=== PATIENT | female | born 1995 | race Two or more races ===

== ENCOUNTER 2024-05-10 12:35 | Emergency (ER) | payer MEDICAID, SELFPAY ==
[2024-05-10 12:44] VITALS: BP 107/70; PULSE 74; RESP 18; TEMP 36.4; O2SAT 99; BMI 27.5
--- NOTE | 2024-05-10 12:57 | ED_ITS ---
HPI - General Adult General Chief complaint: Unspecified Complaint, Adult Stated complaint: Confirm Time Seen by Provider: 05/10/24 12:39 History of Present Illness HPI narrative: took a home preg test at home 2 weeks ago. has not scheduled an OB appt. would like an OB check today. also c/o cough 28-year-old woman presenting to the emergency department to initiate family to initiate obstetrical cares. She notes a history of PCOS and LMP was 02/27/24 though admittedly has rather irregular menses. Two days ago did have a little spotting. She has also had a low back ache. Continues with nausea and breast tenderness. She is not having any abdominal pain. No dysuria or urgency. Last week had some cough and cold symptoms which seem to be much less; improved. No fever. Positive home test at home 2 weeks ago. Here with her partner and other child and would like to know that things are okay and initiate cares. Are recent immigrants from [facility] and asylum case I believe is pending. No health insurance at this time. Wants to make sure she is on the right medications mentioning vitamins. Has been struggling some with heartburn as well. Related Data Home Medications ?Medication ?Instructions ?Recorded ?Confirmed No Known Home Medications 05/10/24 05/10/24 Allergies Allergy/AdvReac Type Severity Reaction Status Date / Time No Known Drug Allergies Allergy Verified 05/10/24 12:47 Review of Systems Status of ROS: Reports: 6 or more systems reviewed and unremarkable except as noted in History and below [facility] Social History Smoking Status: Never smoker Do you use any of these nicotine containing products: None Second hand tobacco smoke exposure: No How often do you have a drink containing alcohol: never AUDIT-C Alcohol total score: 0 Non-prescribed substance use: denies use service: No Exam Narrative: Exam Narrative: Very pleasant. Carefully groomed. Breathing easily. Skin is warm and dry. Lungs are clear. Sounds a little congested in the nasopharynx. Heart with regular rate and rhythm. Abdomen is soft and without notable discomfort to palpation. No flank pain. Extremities are well perfused without edema. Genit ourinary exam was not done. Const: Vital Signs, click to edit/add: Vital Signs - 24 hr 05/10/24 12:44 Temperature 97.5 F L Pulse Rate [Right Pulse Oximeter] 74 Respiratory Rate 18 Blood Pressure [Ri ght Upper Arm] 107/70 Pulse Oximetry 99 Oxygen Delivery Me thod Room Air Documenting provider has reviewed patient's vital signs: yes Course Vital Signs Vital signs: Initial Vital Signs Temperature 97.5 F L 05/10/24 12:44 Temperature Source Temporal Artery Scan 05/10/24 12:44 Pulse Rate 74 05/10/24 12:44 Respiratory Rate 18 05/10/24 12:44 Blood Pressure 107/70 05/10/24 12:44 Blood Pressure Mean 82 05/10/24 12:44 Blood Pressure Position Sitting 05/10/24 12:44 Pulse Oximetry 99 05/10/24 12:44 Oxygen Delivery Method Room Air 05/10/24 12:44 Vital Signs Temperature 97.5 F L 05/10/24 12:44 Pulse Rate 74 05/10/24 12:44 Respiratory Rate 18 05/10/24 12:44 Blood Pressure 107/70 05/10/24 12:44 Pulse Oximetry 99 05/10/24 12:44 Oxygen Delivery Method Room Air 05/10/24 12:44 Temperature 97.5 F L 05/10/24 12:44 Pulse Rate 74 05/10/24 12:44 Respiratory Rate 18 05/10/24 12:44 Blood Pressure 107/70 05/10/24 12:44 Pulse Oximetry 99 05/10/24 12:44 Oxygen Delivery Method Room Air 05/10/24 12:44 Medical Decision Making MDM Narrative Medical decision making narrative: They were concerned about cost of care at this point as well as doing things the right way given there immigration/asylum case. Did attempt to find historical interpreter services to help with appropriate paperwork. Unavailable at this time. Differential to this spotting as described would be post coital or subchorionic bleed, miscarriage, other infection. She does not have symptoms of other vaginal infection. Still has symptoms that I would consider to be consistent with continued namely nausea and breast tenderness. No significant abdominal pain or cramping or symptoms otherwise that I would associate with miscarriage. Could be ectopic . I think generally well and could follow up outpatient. I did return to do a bedside quick look ultrasound. Can verify intrauterine of approximately 8-10 weeks not inconsistent with her reported LMP. Heart rate looks to be good as well. Also looks to have a small subchorionic hemorrhage. We did discuss collecting a urinalysis. They would like to do this and other lab studies in follow-up. I do not think that is unreasonable. Did reach out to OB as well for follow-up in clinic. Referred initially to [facility] to start paperwork/documentation for medical/obstetrical follow- up. See patient discharge plan for further discussion Discharge Plan Discharge Clinical Impression: at early stage, Subchorionic bleed Patient Disposition: Home w/ Parent or Adult Condition: Stable Additional Instructions: Stay well-hydrated. Avoid high level of exertion over the next month. Staying active is good. I am prescribing some medication for you including your vitamins, famotidine for heartburn and ondansetron for nausea. [facility] are [facility]. I think it is good to started [facility] clinic as they can help you fell out proper paperwork. Return for marked increase in bleeding and/or abdominal cramping, bleeding to the degree where you might be bleeding through 1 heavy pad an hour for 2 consecutive hours. Mant?ngase fausto hidratada. Evite realizar un esfuerzo excesivo jun el pr?ximo mes. Mantenerse activa es rodney. Le estoy recetando algunos medicamentos, incluidas mary ann vitaminas prenatales, famotidina para la acidez estomacal y ondansetr?n para las n?useas. Puede regresar a la cl[facility] para recibir atenci?n obst?trica. Creo que es rodney comenzar la cl?[facility]tt [facility], ya que pueden ayudarla a completar el papeleo adecuado. Vuelva por un aumento marcado en el sangrado y/o calambres abdominales, sangrado hasta el punto en que podr?a sangrar a devante?s de jordan toalla higi?rhett pesada por hora jun 2 horas consecutivas. Prescriptions: No Action No Known Home Medications Follow Up/Referrals: Provider,Not a Local [Primary Care Provider] - Stand Alone Forms: [facility] Info Instructions
== END 2024-05-10 14:57 | disposition home or self-care (01) ==
PROVIDERS: Emergency Provider Family Medicine
DX: O20.9 Hemorrhage in early pregnancy, unspecified (principal)
CPT/HCPCS: 81001; 99282; 99283

== ENCOUNTER 2024-07-11 07:07 | Outpatient (CLI) | payer MEDICAID, SELFPAY ==
--- NOTE | 2024-07-11 07:15 | CRLHL7_ITS ---
For Patients: As a result of the Century Cures Act, medical imaging exams and procedure reports are released immediately into your electronic medical record. You may view this report before your referring provider. If you have questions, please contact your health care provider. INDICATION: Dating and viability COMPARISON: None. TECHNIQUE: Real-time gaytan-scale imaging of the pelvis was performed. FINDINGS: heart rate 137 beats per minute. Cervix is closed and measures 4.7 cm. BPD 3.6 cm, 17 weeks 1 day. HC 14.0 cm, 17 weeks 2 days. AC 12.2 cm, 17 weeks 6 days. FL 2.4 cm, 17 weeks 2 days. Sonographic age 17 weeks 3 days and a sonographic due date of 12/16/2024. IMPRESSION: Gestational age calculated at 17 weeks 3 days with a sonographic due date of 12/16/2024. Dictated by Sohan Booker MD @ 07/12/2024 9:35:48 AM (Electronically Signed)
== END 2024-07-11 07:08 | disposition home or self-care (01) ==
PROVIDERS: Visit Provider Physician Assistant
DX: Z34.92 Encounter for supervision of normal pregnancy, unspecified, second trimester (principal); Z3A.17 17 weeks gestation of pregnancy
CPT/HCPCS: 76815; T1013

== ENCOUNTER 2024-07-11 08:14 | Outpatient (CLI) | payer MEDICAID, SELFPAY ==
[2024-07-11 13:28] LABS: Chlamydia DNA Amplified* NOT DETECTED (No Detected); GC DNA Amplified* NOT DETECTED (No Detected)
== END 2024-07-11 08:15 | disposition home or self-care (01) ==
PROVIDERS: Visit Provider Physician Assistant
DX: Z34.92 Encounter for supervision of normal pregnancy, unspecified, second trimester (principal); Z3A.17 17 weeks gestation of pregnancy
CPT/HCPCS: 76815; 86592; 86703; 86704; 86706; 86762; 86787; 86803; 86850; 86900; 86901; 87086; 87340; 87491; 87591

== ENCOUNTER 2024-08-04 07:03 | Outpatient (CLI) | payer MEDICAID, SELFPAY ==
--- NOTE | 2024-08-04 07:15 | CRLHL7_ITS ---
For Patients: As a result of the Century Cures Act, medical imaging exams and procedure reports are released immediately into your electronic medical record. You may view this report before your referring provider. If you have questions, please contact your health care provider. INDICATION: Evaluate anatomy. COMPARISON: 07/11/2024 TECHNIQUE: Real time gaytan scale imaging of the fetus was performed as well as color Doppler analysis of the umbilical vessels. FINDINGS: Sonographic imaging demonstrates a single living intrauterine gestation. Fetus demonstrates a regular cardiac rate of 139 beats per minute. Fetus has a breech position. The placenta lies anteriorly without evidence of placenta previa. Placental edge is 7.1 cm from the internal cervical os. Amniotic fluid volume appears normal. Single deepest vertical pocket: 4.9 cm. The cervix is closed and measures 3.9 cm in length. The composite ultrasound gestational age is calculated at 20 weeks 5 days with an estimated sonographic due date of 12/17/2024. The estimated weight is 400 grams which lies at the 59th %. The following biometric measurements were obtained: Biparietal diameter: 4.5 cm/19 weeks 4 days 9th% Head circumference: 17.6 cm/20 weeks 1 day 13th% Abdominal circumference: 17.1 cm/22 weeks 0 days 81st% Femur length: 3.3 cm/20 weeks 2 days 25th% The HC/AC ratio measures: 1.03 range (1.06-1.25) On anatomic survey, there is a normal appearance of the cerebral ventricles, cavum septi pellucidi, cisterna magna and cerebellum. The nose, lips, and facial profile appear normal. The cervical, thoracic and lumbar spine are not well visualized. There is a normal four-chamber heart view and the left and right ventricular outflow tracts appear normal. The diaphragm and stomach appear normal. Normal bladder. Incomplete visualization of the kidneys. There is a normal three-vessel cord and cord insertion site. The four extremities appear normal. IMPRESSION: Concordance of clinical and sonographic dating. Incomplete visualization of the spine and kidneys due to position. Remainder of the anatomic survey normal. Short-term follow-up recommended. Dictated by Sohan Booker MD @ 08/04/2024 10:22:55 AM (Electronically Signed)
== END 2024-08-04 07:04 | disposition home or self-care (01) ==
LOC: US 07:04
PROVIDERS: Visit Provider Physician Assistant
DX: Z34.92 Encounter for supervision of normal pregnancy, unspecified, second trimester (principal); Z3A.20 20 weeks gestation of pregnancy
CPT/HCPCS: 76805; T1013

== ENCOUNTER 2024-09-01 07:10 | Outpatient (CLI) | payer BC, SELFPAY ==
--- NOTE | 2024-09-01 07:15 | CRLHL7_ITS ---
For Patients: As a result of the Century Cures Act, medical imaging exams and procedure reports are released immediately into your electronic medical record. You may view this report before your referring provider. If you have questions, please contact your health care provider. INDICATION: Follow up suboptimal views of spine and kidneys COMPARISON: 08/04/2024 TECHNIQUE: Real-time gaytan-scale imaging of the pelvis was performed. FINDINGS/IMPRESSION: heart rate 142 beats per minute. Anterior placenta. position is breech. Normal spine, four-chamber heart, LVOT and RVOT. Normal kidneys. Dictated by Sohan Booker MD @ 09/02/2024 6:06:00 PM (Electronically Signed)
== END 2024-09-01 07:11 | disposition home or self-care (01) ==
PROVIDERS: Visit Provider Obstetrics & Gynecology
DX: O35.EXX0 Maternal care for other (suspected) fetal abnormality and damage, fetal genitourinary anomalies, not applicable or unspecified (principal); O35.FXX0 Maternal care for other (suspected) fetal abnormality and damage, fetal musculoskeletal anomalies of trunk, not applicable or unspecified
CPT/HCPCS: 76816; T1013

== ENCOUNTER 2024-09-25 11:09 | Outpatient (CLI) | payer BC, SELFPAY | END 2024-09-25 11:10 | disposition home or self-care (01) | LOC: NFLDREF 11:09 | PROVIDERS: PCP Advanced Practice Midwife; Visit Provider Advanced Practice Midwife | DX: O26.893 Other specified pregnancy related conditions, third trimester (principal); Z67.41 Type O blood, Rh negative; O99.810 Abnormal glucose complicating pregnancy; Z11.3 Encounter for screening for infections with a predominantly sexual mode of transmission; Z3A.28 28 weeks gestation of pregnancy; Z60.3 Acculturation difficulty; Z71.0 Person encountering health services to consult on behalf of another person | CPT/HCPCS: 86592; 86850; T1013; J2791 ==

== ENCOUNTER 2024-10-05 08:17 | Outpatient (CLI) | payer BC, SELFPAY | END 2024-10-05 08:18 | disposition home or self-care (01) | LOC: NFLDREF 10-13 04:27 | PROVIDERS: Visit Provider Obstetrics & Gynecology | DX: O99.810 Abnormal glucose complicating pregnancy (principal); Z36.89 Encounter for other specified antenatal screening; Z3A.29 29 weeks gestation of pregnancy | CPT/HCPCS: 82951; 82952 ==

== ENCOUNTER 2024-11-06 08:58 | Outpatient (CLI) | payer BC, SELFPAY | END 2024-11-06 08:59 | disposition home or self-care (01) | LOC: NFLDREF 11-10 02:38 | PROVIDERS: Visit Provider Obstetrics & Gynecology | DX: Z34.93 Encounter for supervision of normal pregnancy, unspecified, third trimester (principal); Z3A.34 34 weeks gestation of pregnancy | CPT/HCPCS: 82728 ==

== ENCOUNTER 2024-11-14 09:34 | Outpatient (RCR) | payer BC, SELFPAY ==
--- NOTE | 2024-11-08 13:58 | ONC.NURNOTE ---
Diagnosis: iron deficiency anemia in .
--- NOTE | 2024-11-08 14:39 | URNOTE ---
Prior auth is not required for Iron Dextron (J1750). Ref #[id number]
[2024-11-14 09:50] VITALS: BP 108/74; PULSE 107; RESP 16; TEMP 36.1; O2SAT 97
[2024-11-14] MEDS: IRON DEXTRAN COMPLEX 25 MG in 0.9 % SODIUM CHLORIDE 100 ml 100 ML 402 MG IVPB (10:34)
[2024-11-14 10:53] VITALS: BP 106/70; PULSE 89; RESP 16; TEMP 36.6; O2SAT 98
[2024-11-14] MEDS: IRON DEXTRAN COMPLEX 975 MG in 0.9 % SODIUM CHLORIDE 250 ml 250 ML 270 MG IVPB (11:42)
[2024-11-14] MEDS: SODIUM CHLORIDE 0.9 % (FLUSH) 10 ML SYRINGE IVF (11:43)
[2024-11-14 12:54] VITALS: BP 114/72; PULSE 79; RESP 16; O2SAT 98
[2024-11-14 13:21] VITALS: BP 107/69; PULSE 82; RESP 16; TEMP 36.9; O2SAT 97
== END 2025-05-13 23:59 | disposition home or self-care (01) ==
LOC: CCIC 09:34
PROVIDERS: Visit Provider Clinical Nurse Specialist
DX: O99.013 Anemia complicating pregnancy, third trimester (principal); D50.9 Iron deficiency anemia, unspecified
CPT/HCPCS: 96365; T1013; J1750; J7050

== ENCOUNTER 2024-11-20 09:28 | Outpatient (CLI) | payer BC, SELFPAY ==
[2024-11-21 13:27] LABS: Strep B DNA Probe Negative (Negative)
[2024-11-21 13:49] LABS: Strep B Susceptibility Needed? No
== END 2024-11-20 09:29 | disposition home or self-care (01) ==
LOC: NFLDREF 09:28
PROVIDERS: Visit Provider Midwife
DX: Z34.83 Encounter for supervision of other normal pregnancy, third trimester (principal)
CPT/HCPCS: 87081; 87653

== ENCOUNTER 2024-12-02 16:21 | Outpatient (CLI) | payer BC, SELFPAY ==
[2024-12-02 16:52] VITALS: BP 117/67; PULSE 85
--- NOTE | 2024-12-02 17:29 | PM.OBLDTN ---
OB - Triage/Final Diagnosis Visit Information Narrative: The patient is a 29 year old 2 para 1 at 38 weeks gestation by first-trimester ultrasound, who presents with contractions about every 30 minutes. is complicated by malpresentation (transverse with head to maternal left at last visit), Rh-negative and PCOS history. Had been planning to have ECV at the end of this week, but ultimately canceled as her preference would be to have a . She was given very strict return precautions over the weekend for any signs or symptoms of labor in the setting of malpresentation. 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 Patient notes onset of contractions today, occurring about every 30 minutes. She would rate her pain a 4/10 in severity. Denies any vaginal bleeding or leaking of fluid. Endorses active movement. She notes she would not typically present for rule out labor with the symptoms, but was concerned given recent malpresentation. She is otherwise in her normal state of health. Evaluation Vital signs: Vital Signs - 24 hr 12/02/24 16:52 Pulse Rate 85 Blood Pressure 117/67 Comments: General: Alert and oriented, in no acute distress. She does not grimace or posture in pain at all with fractions on tocometer. Psych: Appropriate mood and affect Abdomen: Gravid. Transabdominal ultrasound confirmed cephalic presentation. Patient is thrilled with spontaneous conversion to cephalic presentation. Cervix: Closed, station is -4. NST: Reactive. Baseline of 130 beats per minute, moderate variability and several qualifying 15 x 15 accelerations noted. No decelerations. [place]: Uterine irritability with irregular contractions. Patient denies feeling any contractions during her time in triage. After confirming cephalic presentation, patient is very relieved. We reviewed that she does appear to have some very mild contractions more frequently than she is feeling. Options include continued observation with a repeat cervical exam in 1-2 hours versus dismissal to home with close monitoring for signs/symptoms of labor progression. Patient is comfortable discharge at this time, now that she knows her baby is cephalic. We discussed strict return precautions for regular/painful contractions (approximately every 5 minutes), any vaginal bleeding/leaking of fluid or decreased movement. All questions answered. Return precautions reinforced.
--- NOTE | 2024-12-02 19:36 | PC.OBNST ---
NST Note NST Note Start: 12/02/24 16:25 Freq: ONCE Status: Active Protocol: Document 12/02/24 17:45 ABP (Rec: 12/02/24 19:35 ABP [id number]) NST Note 2 Para (# of births) 1 EDC 12/16/24 Gestational Age In Weeks & Days 38 Weeks & 0 Days Patient Presented with Complaint(s) of Contractions/cramping Other Complaints Baby possibly breech. Reactive Yes REJI De La Cruz RN Date 12/02/24 Reactive Yes REJI Waite RN Date 12/02/24 OB NST charge Yes Complete NST Note via Write Note Yes The provider's electronic signature indicates the NST is reactive/appropriate for gestational age. *Note to provider: If an addendum is required, open the patient's chart and click on the note under the Nurse/Allied Health tab.
== END 2024-12-02 17:30 | disposition home or self-care (01) ==
LOC: OB OUT 16:22 → OB 16:23
PROVIDERS: Visit Provider Obstetrics & Gynecology
DX: O47.1 False labor at or after 37 completed weeks of gestation (principal); Z3A.38 38 weeks gestation of pregnancy
CPT/HCPCS: 59025; 76815; G0463

== ENCOUNTER 2024-12-14 15:55 | Inpatient (IN) | payer BC, SELFPAY ==
[2024-12-14 16:04] VITALS: BP 132/84; PULSE 91
[2024-12-14 16:14] VITALS: BMI 33.4
[2024-12-14 16:15] VITALS: PULSE 88; TEMP 36.9; O2SAT 98
--- NOTE | 2024-12-14 16:19 | P.LDBA_ITS ---
Subjective History of Present Illness Date Seen: 12/14/24 Narrative: Patient is being admitted to Labor and Delivery for elective IOL. She is a 29 year old at 39 5/7 weeks gestation. Her full history and physical was dictated by Dr. COFFEY on 11/28/24. Please see this for details. No new concerns or complaints today. Specific Issues/Plans Partner: Haroon Girl: Charo # late to care due to lack of insurance coverage First visit at 17 weeks 3 days. Dated by second-trimester ultrasound # malpresentation at term ECV on 11/29/24: Spontaneous conversion Cephalic at December 11 visit. # Rh-negative RhoGAM: given 09/25 # varicella nonimmune Vaccinate # Anemia * Hgb 10.4, ferritin 5.6 (11/06/24) * refer for IV iron infusion therapy # Nepali-speaking Imaging: - [facility] 08/04: Normal visualized anatomy, suboptimal views of kidneys. EFW 400g at 59%ile, MVP 7.1cm, Cx long/closed. Anterior placenta, no previa. - 09/06 repeat due to suboptimal visualization: Normal spine, four-chamber heart, LVOT and RVOT. Normal kidneys. Vaccinations: COVID: Declined Flu: Declined Tdap: 10/09/24 RSV: 10/23/24 32 week mental health: 10/23/24 Last pap: Patient reports [facility] in 2022, records not available, she will perform Pap H&P: Dr. Coffey 11/28/2024 OB - Problem Based A/P Additional Plan (1) : Status: Acute Plan 1. Elective IOL, cervix still unfavorable. First delivery she responded very well to vaginal Cytotec. Will proceed with vaginal Cytotec per protocol. 2. GBS negative, no need for antibiotic prophylaxis. 3. Patient plans to get epidural when needed. 4. RH negative, collect cord blood after delivery. OB Exam Physical Exam Vital signs: Pulse BP Pulse Ox 91 132/84 98 12/14/24 16:04 12/14/24 16:04 12/14/24 16:15 Narrative: Bedside US today again confirms vertex presentation. Detailed Labor and Delivery Exam Patient Gravid: Yes Dilation (cm): 0 Effacement (%): 25 Cervix position: mid Consistency: soft Fetus (Single) Amniotic Membrane Status: intact Heart Rate Baseline: 130 Monitor Accelerations: Present Monitor Decelerations: None Usp Variability: Moderate (6-25)
[2024-12-14] MEDS: miSOPROStoL 25 MCG/0.25 TABLET VAGINAL ×2 (17:04→21:09)
[2024-12-14 19:24] VITALS: BP 122/78; PULSE 94; RESP 18; TEMP 36.7
[2024-12-14] MEDS: LACTATED RINGERS 500 ML 500 ML IV (19:28)
[2024-12-14 19:32] LABS: Basophils Absolute Auto 0.02 K/uL (0.00-0.30); Basophils Percent Auto 0.2 % (0.0-3.0); Hematocrit 37.2 % (33.0-51.0); Hemoglobin* 12.5 gm/dL (12.0-16.0); Immature Granulocytes Abs Auto 0.19 K/uL (0.00-0.30); Lymphocytes Absolute Auto 2.09 K/uL (0.90-2.90); Lymphocytes Percent Auto 21.7 % (20-44); Mean Corpuscular HGB Conc 34 gm/dL (32-36); Mean Corpuscular Hemoglobin 29 pg (26-34); Mean Corpuscular Volume 86 fL (80-100); Monocytes Percent Auto 7.3 % (0.0-11.0); Neutrophils Absolute Auto 6.54 K/uL (1.7-7.0); Neutrophils Percent Auto 67.8 % (42.0-72.0); Platelet Count* 236 K/uL (140-440); RDW Coefficient of Variation % 15.6 % (11.5-15.5); Red Blood Count 4.33 m/uL (4.00-5.20); White Blood Count* 9.64 K/uL (4.50-11.00)
[2024-12-14 19:35] LABS: Slide Review Reflex No
[2024-12-14 21:06] VITALS: BP 124/71; PULSE 91; RESP 18; TEMP 36.9
[2024-12-15] VITALS (46 sets, daily range): BP systolic 96–137; BP diastolic 51–88; PULSE 82–119; RESP 16–18; TEMP 36.4–36.9; O2SAT 99–100
[2024-12-15] MEDS: miSOPROStoL 25 MCG/0.25 TABLET VAGINAL ×2 (01:02→05:01)
[2024-12-15] MEDS: OXYTOCIN 30 unit/500 ML in NS 30 UNIT/500 ML BAG IVPB (09:25)
[2024-12-15] MEDS: LACTATED RINGERS 1000 ML 1,000 ML 125 ML IV (09:35)
[2024-12-15] MEDS: LACTATED RINGERS 1000 ML 1,000 ML 525 ML IV (11:55)
[2024-12-15] MEDS: LIDOCAINE 2% (PF) 5 ML VIAL EPIDURAL (12:41)
[2024-12-15] MEDS: ROPIVACAINE 0.2% 100 ml 100 ML 10 MG EPIDURAL (12:41)
--- NOTE | 2024-12-15 12:47 | P.ANBPRC_ITS ---
[facility] Social History Narrative: Occupation: [employer]. Marital status: . Mormon/cultural needs: no. Chemical or radiation exposure: no. Pre- tobacco use: no. Pre- alcohol use: Occasional. Current tobacco use: no. Current alcohol use: no. Recreational drug use: no. Dietary restrictions: no. Blood transfusion acceptable in an emergency: yes. PSYCHOSOCIAL HISTORY: History of depression or currently depressed: no. Current or past physical, emotional, or sexual mistreatment: no. Problems that will make it hard to make it to appointments: no. What is your current living situation?: I presently have a place to live Problems where you live: no known problems In the past 12 months, utilities in danger of being shut off: no In past 12 months, lack of transportation kept you from medical appts, meetings, work, or getting things needed for daily living: no In the past 12 mos, have been you worried that your food would run out before you had money to buy more?: never true In the past 12 mos, the food you bought just didn't last and you didn't have money to buy more?: never true Smoking Status: Never smoker Do you use any of these nicotine containing products: None Second hand tobacco smoke exposure: No How often do you have a drink containing alcohol: never AUDIT-C Alcohol total score: 0 Non-prescribed substance use: denies use How often does anyone, including family, friends and others, physically hurt you : never How often does anyone, including family, friends and others, insult or talk down to you: never How often does anyone, including family, friends and others, threaten you with harm: never How often does anyone, including family, friends and others, scream or curse at you: never service: No Meds Home Medications and Allergies Home Medications ?Medication ?Instructions ?Recorded ?Confirmed ?Type UZE-svut-TV-omega 3-fat com #1 27 1 cap PO DAILY 07/11/24 12/14/24 History mg-1 mg-300 mg capsule Allergies Allergy/AdvReac Type Severity Reaction Status Date / Time shrimp Allergy Severe Swelling Verified 12/14/24 16:29 of Lip/Tongue/Throat shellfish derived Allergy Intermediate Anaphylaxis Verified 12/14/24 16:29 Results Labs Labs: Laboratory Results - last 24 hr 12/14/24 19:21 WBC 9.64 RBC 4.33 Hgb 12.5 Hct 37.2 MCV 86 MCH 29 MCHC 34 RDW Coeff of Shaniqua 15.6 H Plt Count 236 Neut % (Auto) 67.8 Lymph % (Auto) 21.7 [place] % (Auto) 7.3 Eos % (Auto) 1.0 Baso % (Auto) 0.2 Neut # (Auto) 6.54 Lymph # (Auto) 2.09 [place] # (Auto) 0.70 Eos # (Auto) 0.10 Baso # (Auto) 0.02 Abs Immat Gran (auto) 0.19 Imm/Tot Granulo (auto) 2.0 Vital Signs Vital Signs: Last Vital Signs Temp 98.4 F 12/15/24 10:02 Pulse 93 12/15/24 12:46 Resp 17 12/15/24 10:02 BP 123/75 12/15/24 12:46 Pulse Ox 100 12/15/24 12:38 Weight: 85.502 kg Height: 160 cm Anesthesia Procedures Epidural Insertion Patient Location: OB Start Time: 12:30 Stop Time: 13:00 Start Date: 12/15/24 Stop Date: 12/15/24 Reason for Block: primary anesthetic Patient Position: sitting Performed By: Elian Patel Preanesthetic Checklist: IV checked, risks and benefits discussed, surgical consent, monitors and equipment checked, pre-op evaluation, timeout performed and anesthesia consent Prep: chlorhexidine gluconate Monitoring: blood pressure monitoring, monitoring manager, continuous pulse oximetry and heart rate Approach: midline Vertebral Space: lumbar (1-5) Needle Type: Tuohy needle Injection Technique: continuous catheter (catheter) Needle gauge: 17 Needle Length (cm): 10 cm Needle Insertion Depth (cm): 5 Catheter Gauge: 19 Catheter Type: multi-orifice Catheter at skin depth (cm): 10 Test Dose Result: negative and lidocaine 1.5% with epinephrine 1 to 200,000
[2024-12-15] MEDS: LACTATED RINGERS 1000 ML 1,000 ML IV (13:28)
--- NOTE | 2024-12-15 14:46 | PM.OBPNL ---
Subjective Time Seen by Provider: 08:50 Date Seen: 12/15/24 Narrative: Nayeli is a 29-year-old [id number] woman at 39 weeks, 5 days gestation here for an elective induction of labor. She has had 4 doses of vaginal Cytotec for cervical ripening. Objective Exam: General: Ecuadorean-speaking, no acute distress Sterile vaginal exam: Cervix 3 cm, 80% effaced, ballotable station with intact bag of water Vital Signs: Last Vital Signs Temp 98.3 F 12/15/24 14:22 Pulse 100 12/15/24 14:35 Resp 16 12/15/24 14:22 BP 102/68 12/15/24 14:35 Pulse Ox 100 12/15/24 12:38 Comments: tracing: Baseline 130. No decelerations. There was minimal variability just prior to cervical exam, but moderate variability with accelerations returned after scalp stimulation. Assessment Assessment: early labor Status: Category ll Heart Rate Baseline: 130 Monitor Accelerations: Present Monitor Decelerations: None Tracing Comments: Category 2 prior to exam, category 1 after GBS negative Labor Progress: Now with favorable cervix, in early labor Maternal Status: Reassuring Plan Plan: Pitocin augmentation Repeat exam with regular contractions
--- NOTE | 2024-12-15 15:43 | P.OBPN_ITS ---
Subjective Time Seen by Provider: 13:40 Date Seen: 12/15/24 Narrative: Nayeli is a 29-year-old [id number] woman at 39 weeks, 5 days gestation here for an elective induction of labor. She has had 4 doses of vaginal Cytotec for cervical ripening. She has since had oxytocin for induction of labor. Since my last exam, she has had an epidural. Objective Exam: General: Hebrew-speaking, no acute distress Sterile vaginal exam: Cervix 4 cm, 80% effaced, SROM on exam for clear fluid, 0 station Vital Signs: Last Vital Signs Temp 98.3 F 12/15/24 14:22 Pulse 92 12/15/24 15:35 Resp 16 12/15/24 14:22 BP 120/81 12/15/24 15:35 Pulse Ox 100 12/15/24 12:38 Comments: tracing: Baseline 130. No decelerations. Accelerations present. Moderate variability. Contractions Q 3-4 minutes. Assessment Assessment: early labor Amniotic Membrane Status: SROM Status: Category l Heart Rate Baseline: 130 Monitor Accelerations: Present Monitor Decelerations: None Tracing Comments: Category 1 tracing GBS negative Labor Progress: Now with favorable cervix, in early labor Maternal Status: Reassuring Plan Plan: Pitocin augmentation Continuous monitoring.
[2024-12-15] MEDS: LIDOCAINE 1 % PF 30 ML INJECTION (16:08)
--- NOTE | 2024-12-15 16:30 | W.PM.VAGDEL1 ---
Procedure Delivery date: 12/15/24 Procedure Done: [employer] Procedure Details: The patient is a 29 year-old G 2 P 1-0-0-1 woman admitted on 12/14/2024 at 39 Weeks, 6 Days gestation for elective induction of labor.? Cervical exam on admission was fingertip dilated, long, and high with membranes intact in cephalic presentation.? She had 4 doses of vaginal Cytotec for cervical ripening, followed by Pitocin for induction of labor on the morning of 12/15/2024. ? Labor Analgesia:? Epidural ? Pitocin:? Yes ? Labor onset:? 12:04 p.m. on 12/15/2024 SROM occurred at 1:25 p.m. on 12/15/2024 with clear fluid. ? Complete:? 3:46 p.m. ? Pushing:? 3:54 p.m. ? heart tones during second stage were notable for decelerations in her brief 2nd stage with a neli in the 70s; this recovered to the 100s prior to of the . ? At 4:02 p.m. a viable female delivered in vertex CHRISTOPHER presentation over second-degree perineal laceration via vaginal delivery.? The anterior shoulder did not deliver after gentle guidance of the head downward. Shoulder dystocia was diagnosed. Patient was placed in Agustin position, and the posterior shoulder was easily accessed and guided through the vagina. Given the ease that this was accomplished, I suspect that this dystocia was not due to the size of the infant but rather the position of the shoulders. Time from delivery of the head to the anterior shoulder was approximately 5-10 seconds. Infant was placed on maternal abdomen.? Cord was clamped and cut after greater than 60 seconds.? Nose and mouth were bulb suctioned.? Infant weight pending.? 8 at 1 minute and 9 at 5 minutes.? Shoulder dystocia: Yes, brief, as described above.? Nuchal cord: Now. ? Placenta delivered spontaneously and complete at 4:20 p.m. with a 3 vessel cord. ? Mother and infant were stable after delivery. ? Lacerations:? Second-degree perineal laceration, repaired with 2-0 Vicryl in a running fashion after infiltration with 10 mL of 1% lidocaine. ? Blood loss: 200 mL. Blood loss measurement type: QBL ? Sponge and needles counts are correct. Intrapartal Events: Labor Augmentation and Labor Induction Delivery monitor: external FHT Laceration description: Perineal - 2nd Degree
[2024-12-15] MEDS: IBUPROFEN 600 MG TABLET PO (20:01)
[2024-12-16 00:18] VITALS: BP 106/70; PULSE 70; RESP 16; TEMP 36.8; O2SAT 98
[2024-12-16] MEDS: IBUPROFEN 600 MG TABLET PO ×2 (03:53→17:47)
[2024-12-16 03:54] VITALS: BP 106/73; PULSE 80; RESP 15; TEMP 36.6; O2SAT 96
[2024-12-16 05:55] LABS: Hemoglobin* 11.5 gm/dL (12.0-16.0)
--- NOTE | 2024-12-16 08:27 | PM.OBPNVD1 ---
OB - PN:Subj Subjective Time Seen by Provider: 07:35 Date Seen: 12/16/24 Patient comments OB post-: no complaints status: (Reportedly going well) Narrative: The patient is a 29-year-old 2 now para 2001 who is day #1 following a vaginal delivery late yesterday afternoon. Labor had been induced electively at 39 6/7 weeks gestation. She made good progress in labor and had an uncomplicated delivery. She had a second-degree perineal laceration with the delivery that required repair. This morning, the patient feels well. She had a little bit of cramping overnight, and moderate lochia. OB - PN: Obj Exam Physical Exam: Vital signs: Temp Pulse Resp BP Pulse Ox O2 Del Method 97.8 F 80 15 106/73 96 Room Air 12/16/24 03:54 12/16/24 03:54 12/16/24 03:54 12/16/24 03:54 12/16/24 03:54 12/16/24 03:54 Constitutional: Constitutional: no acute distress Routine Neck Exam: Neck: Present full ROM Routine Respiratory Exam: Respiratory: Absent respiratory distress Routine Cardiovascular Exam: Cardiovascular: Present RRR Routine Abdominal Exam: Abdominal: Present soft Fundus: Present firm Routine Extremities Exam: Extremities: Present normal inspection and pedal edema (Trace) Routine Neurological Exam: Neurological: Present alert and oriented X3 Routine Psychiatric Exam: Psychiatric: Present normal affect OB - PN: Obj Data Labs Labs: Laboratory Results - last 24 hr 12/15/24 12/16/24 05:46 05:46 Hgb 11.5 L Screen Negative OB - PN: A/P Delivery Assessment and Plan (1) care and examination of lactating mother: Status: Acute (2) [place] speaking patient: Status: Acute (3) Rh negative status during : Status: Acute Plan Patient will need RhoGAM prior to discharge, as infant is Rh positive. Anticipate discharge tomorrow morning. Plan day: 1 Plan: routine care
[2024-12-16 09:07] VITALS: BP 107/69; PULSE 88; RESP 14; TEMP 36.6; O2SAT 96
[2024-12-16 12:05] VITALS: BP 99/64; PULSE 74; RESP 16; TEMP 36.2; O2SAT 97
[2024-12-16 13:26] LABS: Rapid Plasma Reagin (RPR) Non Reactive (Non Reactive)
[2024-12-16] MEDS: DOCUSATE SODIUM 100 MG CAPSULE PO (17:47)
[2024-12-16 17:51] VITALS: BP 116/77; PULSE 86; RESP 14; TEMP 36.4; O2SAT 97
[2024-12-17] MEDS: IBUPROFEN 600 MG TABLET PO (00:05)
[2024-12-17 00:11] VITALS: BP 117/89; PULSE 89; RESP 16; TEMP 36.7
[2024-12-17 08:23] VITALS: BP 110/74; PULSE 72; RESP 16; TEMP 36.4; O2SAT 98
--- NOTE | 2024-12-17 09:02 | P.DS_ITS ---
DS: Providers Provider Time Seen by Provider: 08:10 Date Seen: 12/17/24 Date of admission: 12/14/24 15:55 Primary care physician: Not a Local Provider Admitting Clinician: Radha Narvaez MD Consults: 12/14/24 16:28 Consult to Financial Examiner [CONS] Routine Comment: Reason for Consult:: Supervisor Wood Room Needed Attending Physician on discharge: Lien Egan MD Date of Discharge: 12/17/24 DS: Diagnosis Discharge Diagnosis (1) care and examination of lactating mother: Status: Acute Exam Const: Vital Signs, click to edit/add: Vital Signs - 24 hr 12/16/24 09:07 12/16/24 12:05 12/16/24 17:51 Temperature 97.9 F 97.2 F L 97.5 F L Pulse Rate [Pulse Oximeter] 88 74 86 Respiratory Rate 14 16 14 Blood Pressure [Ri ght Arm] 107/69 99/64 116/77 Pulse Oximetry 96 97 97 Oxygen Delivery Me thod Room Air Room Air Room Air 12/17/24 00:11 12/17/24 08:23 Temperature 98.0 F 97.6 F Pulse Rate [Pulse Oximeter] 89 72 Respiratory Rate 16 16 Blood Pressure [Ri ght Arm] 117/89 110/74 Pulse Oximetry 98 Oxygen Delivery Me thod Room Air Room Air Documenting provider has reviewed patient's vital signs: yes Common normals: no apparent distress and oriented x3 General appearance: cooperative and comfortable HENMT: Common normals: normocephalic Head and scalp: normocephalic Resp: Common normals: normal respiratory effort Cardio: Common normals: regular rate and regular rhythm Rate: regular rate Rhythm: regular rhythm GI: Common normals: soft to palpation and non-tender Inspection: normal to inspection Palpation: soft Extremity: Common normals: normal to inspection and no pedal edema Neuro: Common normals: oriented x3 Psych: Common normals: affect normal OB - DS: Summary Hospital Course Hospital Course: The patient is a 29 year old G 2 now P 2001 that was admitted to the Center on 12/14/24 at 39 5/7 weeks gestation for induction of labor. She had an uncomplicated vaginal delivery. She delivered a viable female . She is breast feeding. the patient has done well. Peripartum Data delivery method: Vaginal Laceration description: Perineal - 2nd Degree Episiotomy description: None complications: none [place] Infant Gender: Female Infant Discharge Plan: Home Status at Discharge Functional status at discharge: independent ambulation Overall status at discharge: patient is back to baseline Time Spent with Patient Time attestation: Total time spent providing and/or coordinating discharge services: Time spent: Less than 30 minutes Discharge Plan Discharge Disposition: Home, Self-Care Date of Admission: 12/14/24 15:55 Attending Provider on Discharge: Lien Egan Consulting Providers: Mariana Avalos Primary Care Provider: Provider,Not a Local Condition: Stable Anticipated Discharge Date/Time: 12/17/24 09:07 Discharge Medications: New acetaminophen 500 mg Tablet 1,000 mg PO Q6H PRNQty: 100 0RF docusate sodium 100 mg Capsule 100 mg PO DAILY Qty: 30 0RF ibuprofen 600 mg Tablet 600 mg PO Q6H PRNQty: 30 0RF Continued [id number] 3-fat com #1 27-1-300 mg capsule 1 cap PO DAILY Discharge Orders: Discharge Order (Routine); Ordered 12/17/24 Ordered By: Lien Egan Patient Education: OB Over the Counter Medication Information, OB Vaginal/Breast Feeding Activity Level: Activity as Tolerated Activity Detail: Nothing in the vagina for 6 weeks. Discharge Diet: Regular Follow Up Appointments: Provider,Not a Local [Primary Care Provider] - Forms: [facility] Info Instructions DS:Data Additional Comments Additional comments: Discharge hemoglobin 11.5. RhoGAM administered for maternal Rh-negative status, Rh positive.
[2024-12-17 16:25] VITALS: BP 112/75; PULSE 85; RESP 16; TEMP 36.9; O2SAT 96
== END 2024-12-17 16:50 | disposition home or self-care (01) | DRG 560 ==
PROVIDERS: Obstetrics & Gynecology; Admitting Provider Obstetrics & Gynecology; Visit Provider Obstetrics & Gynecology
DX: O66.0 Obstructed labor due to shoulder dystocia (principal); O76 Abnormality in fetal heart rate and rhythm complicating labor and delivery; O70.1 Second degree perineal laceration during delivery; O26.893 Other specified pregnancy related conditions, third trimester; Z67.41 Type O blood, Rh negative; O99.02 Anemia complicating childbirth; D64.9 Anemia, unspecified; Z3A.39 39 weeks gestation of pregnancy; Z37.0 Single live birth
CPT/HCPCS: 01967; 36415; 59200; 76815; 85018; 85025; 85461; 86592; T1013; A9270; J2003; J2371; J2791; J2795; J7120

== ENCOUNTER 2024-12-18 09:50 | Outpatient (CLI) | payer BC, SELFPAY ==
--- NOTE | 2024-12-18 12:02 | W.PM.LAC.MC ---
Consult Note - Mom Date of Visit Date of visit: 12/18/24 Reason for consultation: Assistance Needed (latch assist, babe at 8% wt loss at d/c yest; now 10% at clinic visit today) and Other (visit completed with translator and interpreter Giles) Visit Code: Visit Patient's Information Phone number: [phone] : 2 Para: 2 Allergies shrimp Allergy (Severe, Verified 12/14/24 16:29) Swelling of Lip/Tongue/Throat shellfish derived Allergy (Intermediate, Verified 12/14/24 16:29) Anaphylaxis Delivery Information Delivery type: Vaginal (induced) Gestational Age: 39+6 Gestational Weight For Age: AGA Weight: 3.53 kg Discharge Weight: 3.25 kg Percentage weight loss: 8 Baby's Information Baby's Age at Visit: 3 days Baby's Provider or Clinic: [facility] Jaundice: No Past Experience Past Experience: Yes (first child for 1 yr without problems) Current Frequency of Day Feedings: all the time, seems like she is always hungry but gets sleepy at breast Frequency of Night Feedings: same Both Breasts: Yes Suck: painful Latch: shallow, nipples are sore Length of Time: trying 15 on ea side Goals: at least 1 year Pumping Pumping: Yes (x2) Quantity Pumped: got 30 ml in about 5 minutes Supplementing EBM Supplement: Yes (15 ml x1 since home) Formula Supplement: Yes (15ml x1 since home) Baby Elimination Number of Wet Diapers a Day: 4 (incl one here in office) Number of BM a Day: 5-6, more yellow today Breast/Nipple Condition Breast Information: Breasts are symmetrical with rounded lower quadrants, intramammary distance is less than 1.5 inches. No erythema. Nipples are supple, everted prior to feeding. Mom feels like her milk started coming in through the night Breast Shape: Round Engorgement: No Maternal Nipple Condition - Left: Common Nipple Maternal Nipple Condition - Right: Common Nipple Sore Nipples: Yes Interventions for Sore Nipples: Lansinoh/Nipple Cream and Soothies/Hydrogel Pads (they are helping) Baby Assessment Skin: Normal Tongue/frenulum: Normal/elastic Palate: Average Lips: Relaxed and Symmetrical Jaw Alignment: Symmetrical Mucosa: [place], moist Onsite Observation Pre-Feed weight: 3.18 kg Post-Feed weight: 3.192 kg Milk Transferred (mL): 12 Position: Cross cradle Attachment/latch-on achieved: With difficulty (worked with mom for a wider, deeper latch; mom reports more comfortable) Suck pattern: Extended rest phase, lots of stimulation to keep baby nursing Swallow: Occasionally Behavior following feed: Relaxed, sleepy Pre-Nursing Left Nipple: Within Normal Limits Pre-Nursing Right Nipple: Crusting/Scabs Post-Nursing Left Nipple: Within Normal Limits Post-Nursing Right Nipple: Within Normal Limits Assessments/Interventions Assessments/Interventions: Erika latched fairly easily after coaching mom on bringing baby to the breast and maintaining a deep latch. Erika seemed to be sucking strongly and did have some audible swallows; however, only transferred 8ml after 15 min on mom's left breast Transferred baby to mom's right breast, again worked for a deeper latch, worked with mom on breast compression to help get more milk to baby. Erika appears to be swallowing, not audible, and only transferred 4 ml in 10 minutes and then came off the breast. Worked with mom and dad to supplement baby with formula for a full feeding; offered 30ml of Enfamil formula via paced bottle feeding, and erika took down full 30ml after needing some coaxing to allow the nipple into her mouth. Discussed offering each breast for 10-15 minutes, while erika is engaged in feeding Use breast compression to help get erika more milk at the breast Offer supplement after feeding given minimal intake here in the office. Offer 30 ml until erika no longer taking it all. If she drinks all 30ml, offer another 15 ml. Discussed as erika gains weight and gets stronger, hopefully she will nurse more strongly and then supplementing won't be needed, but until clinic visit on Wednesday, need to supplement to be sure she is getting adequate calories for growth. Offer mom's EBM, then formula if no EBM available. Mom to pump after feedings to collect milk for supplementing; ok to pump just a little more than erika needs to keep with supply/demand. Mom has a Spectra pump, knows how to use it and has no question about it right now. Education provided: Early feeding cues to maximize timing of latching, Asymmetric latch technique for wide/deep latch to increase milk, Transfer for baby and increase comfort for mom, Supply/demand nature of milk supply, Need for frequent stimulation/milk removal, Sore nipple treatment options, Alternative feeding methods (SNS, cup, finger feeding, bottling), Pumping for milk management and Milk collection, storage Handouts Provided: Paced bottle feeding in Kisw[place]ili Follow-Up Suggested follow up: Appointment in 1-3 days Recommend baby be seen by provider for:: weight check; can follow up here if needed for further assist with if milk transfer doesn't improve Time Spent Time spent with patient (min): 90 (reviewing EMR and face to face with patient, partner, and translator and interpreter) Meds Home Medications and Allergies Home Medications ?Medication ?Instructions ?Recorded ?Confirmed ?Type [id number] 3-fat com #1 27 1 cap PO DAILY 07/11/24 12/14/24 History mg-1 mg-300 mg capsule Allergies Allergy/AdvReac Type Severity Reaction Status Date / Time shrimp Allergy Severe Swelling Verified 12/14/24 16:29 of Lip/Tongue/Throat shellfish derived Allergy Intermediate Anaphylaxis Verified 12/14/24 16:29
== END 2024-12-18 09:51 | disposition home or self-care (01) ==
PROVIDERS: Visit Provider Obstetrics & Gynecology
DX: Z39.1 Encounter for care and examination of lactating mother (principal)
CPT/HCPCS: G0463; T1013

== ENCOUNTER 2025-01-26 09:59 | Outpatient (CLI) | payer BC, SELFPAY ==
[2025-01-30 19:12] LABS: HPV Source Cervix; HPV, High Risk by TMA Not Detected
== END 2025-01-26 10:00 | disposition home or self-care (01) ==
PROVIDERS: Visit Provider Physician Assistant
DX: N89.8 Other specified noninflammatory disorders of vagina (principal); Z12.4 Encounter for screening for malignant neoplasm of cervix; Z11.51 Encounter for screening for human papillomavirus (HPV)
CPT/HCPCS: 87624; 87625; 88141; 88142; T1013